=== PATIENT | female | born 1975 | race Caucasian/White ===

== ENCOUNTER 2018-06-28 08:39 | Emergency (ER) | payer OTHER ==
[~2018-06-28] VITALS: Ht 160 cm; Wt 84.8 kg
[2018-06-28 09:18] LABS: Urine Bacteria FEW /hpf (None Seen); Urine Blood 1+ /uL (Negative); Urine Mucus FEW (None Seen); Urine Specific Gravity 1.011 (1.001-1.035); Urine WBC <1 /hpf (0 - 5)
[2018-06-28] MEDS ORDERED: PANTOPRAZOLE 40 MG TAB PO ONE (09:30)
[2018-06-28 09:40] LABS: Basophils # (auto) 0.1 uL; Basophils % (auto) 1.1 % (0.0-2.0); Eosinophils # (auto) 0.1 uL; Eosinophils % (auto) 1.4 % (0.0-7.0); Hematocrit 40.7 % (36.0-46.0); Hemoglobin 13.9 g/dL (12.2-16.2); Lymphocytes % (auto) 28.9 % (10.0-50.0); Mean Corpuscular Hgb Conc. 34.2 g/dL (32.0-36.0); Mean Corpuscular Volume 87.7 fL (80.0-100.0); Monocytes # (auto) 0.4 uL; Neutrophils # (auto) 4.5 uL; Neutrophils % (auto) 63.6 % (37.0-80.0); Nucleated Red Blood Cells % 0.1 %; Platelet Count (auto) 337 10^3/uL (140-450); Red Blood Cells 4.64 10^6/uL (4.0-5.20); Red Cell Distribution Width 13.4 % (11.8-14.3); White Blood Cell 7.1 10^3/uL (4.4-10.8)
[2018-06-28 10:01] LABS: Alanine Aminotransferase 24 U/L (13-56); Albumin 3.6 g/dL (3.4-5.0); Amylase 63 U/L (25-115); Anion Gap 7 (5-15); Aspartate Aminotransferase 13 U/L (15-37); Blood Urea Nitrogen 8 mg/dL (7-18); Calcium 8.6 mg/dL (8.5-10.1); Carbon Dioxide 25 mmol/L (21-32); Chloride 107 mmol/L (98-107); Glucose 97 mg/dL (74-106); Lipase 127 U/L (73-393); Potassium 3.8 mmol/L (3.5-5.1); Sodium 139 mmol/L (136-145)
[2018-06-28 10:04] LABS: Alkaline Phosphatase 67 U/L (45-117); BUN/Creatinine Ratio 11.8; Bilirubin, Total 0.4 mg/dL (0.2-1.0); GFR African American > 60 mL/min; GFR Non-African American > 60 mL/min; Total Protein 7.3 g/dL (6.4-8.2)
[2018-06-28 11:34] VITALS: BP 11/78
== END 2018-06-28 11:42 | disposition home or self-care (01) ==
LOC: ER 08:39
DX: R10.13 Epigastric pain (principal); H92.02 Otalgia, left ear; K42.9 Umbilical hernia without obstruction or gangrene; Z98.51 Tubal ligation status; Z90.710 Acquired absence of both cervix and uterus
CPT/HCPCS: 36415; 74176; 80053; 81001; 82150; 83690; 85025

== ENCOUNTER 2018-09-14 23:39 | Emergency (ER) | payer OTHER ==
[~2018-09-14] VITALS: Ht 160 cm; Wt 87.5 kg
[2018-09-15] MEDS ORDERED: KETOROLAC TROMETH 60MG/2ML VIAL IM ONE
[2018-09-15 02:46] VITALS: BP 92/56
== END 2018-09-15 03:13 | disposition home or self-care (01) ==
LOC: ER 23:39
DX: M62.830 Muscle spasm of back (principal)
CPT/HCPCS: 72131; 96372; 99284; J1885